=== PATIENT | male | born 1970 | race Caucasian/White ===

== ENCOUNTER → 2019-02-22 | Outpatient (CLI) | payer OTHER ==
[~2019-02-22] MED LIST: CHANTIX0.5 MG PO; IBUPROFEN 200200 M1 PO
== END ==
LOC: M.RAD 16:04
DX: M40.46 Postural lordosis, lumbar region (principal); G89.29 Other chronic pain; K92.1 Melena; R53.82 Chronic fatigue, unspecified; R05 Cough

== ENCOUNTER 2019-10-15 09:10 | Emergency (ER) | payer OTHER ==
[~2019-10-15] VITALS: Ht 185.4 cm; Wt 79.4 kg
[2019-10-15 10:04] LABS: ABSOLUTE BASOPHILS 0.1 thou/uL (0.0-0.2); ABSOLUTE EOSINOPHILS 0.1 thou/uL (0.0-0.7); ABSOLUTE LYMPHOCYTES 1.9 thou/uL (0.8-5.3); ABSOLUTE MONOCYTES 0.8 thou/uL (0.0-1.2); ABSOLUTE NEUTROPHILS 5.2 thou/uL (1.6-8.1); BASOPHILS 0.7 %; HEMATOCRIT 43.6 % (42.0-52.0); HEMOGLOBIN 15.3 gm/dL (14.0-18.0); LYMPHOCYTES 23.7 %; MCH 32.3 pg (26.0-34.0); MCHC 35.1 g/dL (28.0-37.0); MONOCYTES 9.6 %; MPV 8.4 fl. (7.2-11.1); NUCLEATED RBCS 0 /100WBC; PLATELET COUNT* 204 thou/uL (150-400); RBC 4.74 mil/uL (4.50-6.00); RDW-CV 12.7 % (10.5-14.5)
[2019-10-15 10:16] LABS: APTT 25.2 Seconds (25.0-31.3); PROTIME 10.5 Seconds (9.20-11.50)
[2019-10-15 10:21] LABS: ANION GAP 5 mmol/L (7-16); BUN 18 mg/dL (7-18); CALCIUM 8.7 mg/dL (8.5-10.1); CHLORIDE 106 mmol/L (98-107); CO2 29 mmol/L (21-32); CREATININE 1.1 mg/dL (0.6-1.3); GLUCOSE 89 mg/dL (70-99); POTASSIUM 4.3 mmol/L (3.5-5.1); SODIUM 140 mmol/L (136-145)
[2019-10-15 10:28] LABS: ALBUMIN 3.7 g/dL (3.4-5.0); ALKALINE PHOSPHATASE 68 U/L (46-116); CK-MB MASS < 0.5 ng/mL (<0.5-3.6); LIPASE 209 U/L (73-393); NT-PRO BRAIN NAT PEPTIDE 39 pg/mL (<300); SGOT 21 U/L (15-37); SGPT 35 U/L (30-65); TOTAL BILIRUBIN 0.4 mg/dL (<0.1-1.0)
[2019-10-15 12:05] VITALS: BP 114/72
--- NOTE | 2019-10-15 13:41 | EKG ---
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
== END 2019-10-15 12:05 | disposition home or self-care (01) ==
LOC: M.ERS 09:10
PROVIDERS: Family Medicine
DX: R07.89 Other chest pain (principal); Z88.8 Allergy status to other drugs, medicaments and biological substances